=== PATIENT | female | born 1980 | race Caucasian/White ===

== ENCOUNTER → 2020-07-16 16:14 | Outpatient (CLI) | payer BC, SELFPAY ==
--- NOTE | ~2020-07-16 | MM_ITS ---
EXAMINATION: MM screening demi BI w mayco HISTORY: Screening mammogram TECHNIQUE: Craniocaudal and mediolateral oblique 3-D tomosynthesis images were obtained and synthetic 2-D images were generated. Bilateral rotated lateral cc views. CAD analysis was submitted and interp reted. COMPARISON: 10/21/2018 bilateral diagnostic digital mammogram and limited right breast ultrasound BREAST PARENCHYMAL COMPOSITION: The breasts are heterogeneously dense, which may obscure small masses . FINDINGS: There is a biopsy marker in the outer mid right breast posteriorly; history of prior benign stereotactic biopsy of right breast in 2018. Scattered benign calcifications primarily in the mid to upper outer right breast near region of prior stereotactic biopsy site. An approximately 1.6 cm partially circumscribed mass is suggested in the o uter mid right breast (MLO Tomosynthesis image 17/58). Diagnostic right mammogram and right breast ul trasound examination are recommended. Otherwise there is no evidence of suspicious mass, calcification, or architectural distortion to sugg est malignancy in either breast. There has been no other suspicious interval change. IMPRESSION: 1. Approximately 1.6 cm mass is suggested in the mid outer right breast 2. Diagnostic right mammogram and right breast ultrasound examination are recommended. BI-RADS Category 0: Incomplete: Needs additional imaging evaluation. Reviewed, dictated and finalized at location A. IMPRESSION: 1. Approximately 1.6 cm mass is suggested in the mid outer right breast 2. Diagnostic right mammogram and right breast ultrasound examination are recom mended. BI-RADS Category 0: Incomplete: Needs additional imaging evaluation.
== END ==
PROVIDERS: Visit Provider Obstetrics & Gynecology
DX: Z12.31 Encounter for screening mammogram for malignant neoplasm of breast (principal); R92.8 Other abnormal and inconclusive findings on diagnostic imaging of breast
CPT/HCPCS: 77063; 77067

== ENCOUNTER → 2020-08-13 09:01 | Outpatient (CLI) | payer BC, SELFPAY ==
--- NOTE | ~2020-08-13 | MMUS_ITS ---
EXAMINATION: MM diagnostic mammo unilat RT, US breast RT complete HISTORY: 1.6 cm partially circumscribed mass in outer mid right breast on 07/16/2020 screening mammogr am TECHNIQUE: Additional 3-D tomosynthesis images of the right breast were performed and synthetic 2-D i mages were generated. Magnification ML and cc views. CAD analysis was submitted and interpreted. High resolution complete right breast ultrasound was performed. COMPARISON: 07/12/2020 bilateral digital screening mammogram 10/21/2018 bilateral diagnostic digital mammogram and limited right breast ultrasound examination FINDINGS: MAMMOGRAPHIC FINDINGS: Numerous benign appearing microcalcifications are noted. There is a biopsy marker in the posterior mi d to lower outer right breast of prior benign stereotactic biopsy of right breast microcalcifications . No suspicious mass or architectural distortion is evident. However, the heterogeneous stroma may obsc ure masses. Complete right breast ultrasound examination was performed. ULTRASOUND: 4:00 3 cm from nipple: 2 x 10 x 8 mm simple cyst 8:00 5 cm from nipple: Septated 6 x 3.5 x 11 mm cyst 9:00 5 cm from nipple: 7 x 18 x 17 mm simple cyst 10:00 6 cm from nipple: There is an approximately 4 x 8 mm non-circumscribed area of hypoechogenicity without any internal vascularity on color flow imaging and without shadowing. 6 month targeted diagn ostic right mammogram and right breast ultrasound follow-up at 10:00 6 cm from nipple is recommended. IMPRESSION: 1. Probably benign findings 2. Six-month diagnostic right mammogram and targeted right breast ultrasound follow-up at 10:00 6 cm from the nipple is recommended BI-RADS category 3, probably benign findings. Reviewed, dictated and finalized at location A. IMPRESSION: 1. Probably benign findings 2. Six-month diagnostic right mammogram and targeted right breast ultrasound fo llow-up at 10:00 6 cm from the nipple is recommended BI-RADS category 3, probably benign findings.
== END ==
PROVIDERS: Visit Provider Obstetrics & Gynecology
DX: R92.8 Other abnormal and inconclusive findings on diagnostic imaging of breast (principal)
CPT/HCPCS: 76641; 77065

== ENCOUNTER → 2020-10-16 03:02 | Outpatient (CLI) | payer BC, SELFPAY ==
[2020-10-16 19:41] LABS: SARS-CoV-2 RNA PCR Negative
== END ==
PROVIDERS: PCP Family Medicine; Visit Provider Surgery
DX: Z01.812 Encounter for preprocedural laboratory examination (principal); Z20.822 Contact with and (suspected) exposure to COVID-19
CPT/HCPCS: C9803; U0003; U0005

== ENCOUNTER 2020-10-19 02:40 | Day surgery (SDC) | payer BC, SELFPAY ==
[2020-10-18 09:10] VITALS: BMI 25.8
--- NOTE | 2020-10-18 12:06 | P.PNAN_ITS ---
Anes - Initial Pre Proc Eval Procedure: Operation Date: 10/19/20 13:00 Proposed Procedures p Rectal Exam Under Anesthesia, Excision External Hemorrhoid - Steve Murray DO Date/Time: 10/18/20 12:06 Surgeon: Steve Murray DO Pre Op Diagnosis: external hemorrhoid Patient Data Age: 40 Gender: F Height: 1.57 m Weight: 64 kg Allergies Allergy/AdvReac Type Severity Reaction Status Date / Time No Known Allergies Allergy Verified 10/19/20 11:22 Home Medications Medication Instructions Recorded Confirmed Type multivitamin 1 tablet PO DAILY 09/12/20 10/19/20 History Patient hx anesthesia problems: none Family hx anesthesia problems: none [facility] Past Medical History Medical History Mitral valve prolapse Family History Family History Father Brain tumor Malignant neoplasm of prostate Mother Diabetes mellitus Sibling Diabetes mellitus Unknown Diabetes mellitus Cerebrovascular accident Social History Social History Smoking status: Never smoker Alcohol intake: current Drinks per week: 5 Substance use: never Living arrangements: with family Additional living arrangements comments: [facility] [employer] [facility] Spiritual care concerns: No Anes - Eval Final PreProcedure Day of Procedure 10/18/20 12:06 Patient weight: overweight Heart: regular rate and rhythm Lungs: clear to auscultation and normal air movement Airway: Mallampati scale class II Neurological: alert and oriented Last oral intake: >/= 8 hours ASA classification: II Emergent: no Anesthetic plan: proceed Anesthesia type and monitoring: general GIVS and standard monitoring Informed Consent: The patient's anesthetic plan and its attendant risks and benefits were discussed with the patient/family/POA. Questions were solicited and answers provided to the satisfaction of the patient/family/POA.
[2020-10-19 11:31] VITALS: BP 115/71; PULSE 72; RESP 16; TEMP 37.5; O2SAT 100
[2020-10-19] MEDS: LACTATED RINGERS 1,000 ML 30 ML IV CONT (11:35)
[2020-10-19] MEDS: ACETAMINOPHEN 500 MG TABLET 1000 MG PO (11:53)
[2020-10-19] MEDS: KETOROLAC 15 MG/ML VIAL (*BKC) IV PUSH (11:55)
--- NOTE | 2020-10-19 13:19 | WPDHPUPDATE1 ---
History and Physical Update Update Date/Time: 10/19/20 13:19 History and Physical has been reviewed, including an updated exam of the patient. There are NO changes in the patient's condition. Risks, benefits, and alternatives have been discussed and questions answered. Patient agrees to proceed with procedure.
--- NOTE | 2020-10-19 13:20 | PM.IMHP ---
H&P: HPI History of Present Illness Date/Time: 10/19/20 13:20 Chief Complaint: External hemorrhoid Narrative: This is a 40-year-old woman who presented with a previous thrombosed external hemorrhoid. The thrombosis has improved but she has a residual skin tag remaining the gets frequently irritated and is painful at times. She now presents for excision of the external hemorrhoid. Review of Systems Review of Systems: All systems reviewed & are unremarkable except as noted in HPI and below Constitutional: Constitutional: Denies chills, Denies fever(s), Denies headache(s) and Denies weight loss Eyes: Eyes: Denies change in vision ENT: Denies dizziness, Denies headache(s), Denies neck mass and Denies throat swelling Cardiovascular: Cardiovascular: Denies chest pain, Denies lightheadedness and Denies dyspnea Respiratory: Respiratory: Denies cough, Denies dyspnea and Denies wheezing Gastrointestinal: Gastrointestinal: Denies abdominal pain, Denies change in bowel habits, Denies nausea and Denies vomiting Genitourinary: Genitourinary: Denies hematuria and Denies dysuria Musculoskeletal: Musculoskeletal: Reports as per HPI Integumentary/Breasts: Skin/Breast: Reports as per HPI Neurologic: Denies dizziness and Denies headache(s) Allergic/Immunologic: Allergic/Immunologic: Denies throat swelling and Denies wheezing PMFSH Past Medical History Medical History Mitral valve prolapse Family History Family History Father Brain tumor Malignant neoplasm of prostate Mother Diabetes mellitus Sibling Diabetes mellitus Unknown Diabetes mellitus Cerebrovascular accident Social History Social History Smoking status: Never smoker Alcohol intake: current Drinks per week: 5 Substance use: never Living arrangements: with family Additional living arrangements comments: [facility] [employer] [facility] Spiritual care concerns: No Meds Home Medications and Allergies Home Medications Medication Instructions Recorded Confirmed Type multivitamin 1 tablet PO DAILY 09/12/20 10/19/20 History Allergies Allergy/AdvReac Type Severity Reaction Status Date / Time No Known Allergies Allergy Verified 10/19/20 11:22 Vital Signs Vital Signs - 24 hr 10/19/20 11:31 Temperature 37.5 C Pulse Rate 72 Respiratory Rate 16 Blood Pressure 115/71 Pulse Oximetry 100 Exam Const: General: no acute distress and alert Orientation/consciousness: patient oriented x3 HENMT: Head: normocephalic and atraumatic Ears: hearing grossly normal bilaterally General nose exam: Normal nares present Mouth: Yes Normal oral and palatal mucosa present Eyes: Periorbital: periorbital findings normal Sclera: sclerae normal EOM: EOMs intact bilaterally Neck: Neck: normal visual inspection, no lymphadenopathy and trachea midline Chest: Chest palpation & inspection: normal inspection of the chest Resp: Effort & Inspection: normal respiratory effort Auscultation: clear to auscultation bilaterally Cardio: Jugular venous distension: no JVD Rate: regular rate Rhythm: regular rhythm Heart sounds: S1 normal heart sound present and S2 normal heart sound present Peripheral pulses: Peripheral pulses 2+ throughout GI: Inspection: normal to inspection GI Palp: Yes Soft to palpation, No Tenderness to palpation present (GI), No Guarding due to palpation present (GI) and No Rebound tenderness present Percussion: Yes normal to percussion Auscultation: normal bowel sounds Rectal Exam: other (External residual hemorrhoid skin tag) : General: Yes no CVA tenderness Back/Spine/Pelvis: Back: no CVA tenderness Neuro: General: patient oriented x3, no focal motor deficits and CN's II-XI intact bilaterally Cognition (Neuro): normal cognition Speech: normal speech Motor exam
[2020-10-19] MEDS: ceFAZolin 2 GM/D5W 50 ML 2 GM/50 ML BAG IVPB (13:39)
[2020-10-19 14:15] VITALS: BP 113/74; PULSE 81; RESP 16; O2SAT 100
--- NOTE | 2020-10-19 14:15 | P.OP_ITS ---
Procedure Note - Detailed Date of Procedure 10/19/20 Pre-op Diagnosis external hemorrhoid Post-op Diagnosis same Procedure Performed 1. Rectal exam under anesthesia 2. Excision of external hemorrhoid x2 Surgeon Steve Murray, DO Anesthesia MAC and local (Exparel) Indications This is a 40-year-old woman who presented with a painful and irritated lump near her anus. This has been present for the past 2 months. She appeared to have evidence of a prior thrombosed external hemorrhoid and still had some swelling in the region and redundant skin tag. This was primarily located in the anterior midline region, but patient has also had some problems and other regions around the anus from prior pregnancies. Discussions were made with the patient about treatment options and decision was made to proceed with excision of the external hemorrhoid. Findings Rectal exam under anesthesia was performed. In the anterior midline there did appear to be evidence of a prior thrombosed external hemorrhoid. The external hemorrhoid was excised with an elliptical incision around the redundant perianal skin. The patient also had to areas of residual hemorrhoid skin tags in the posterior left and posterior right region was just off of midline. These were very skin tags measuring only about 2-3 mm. These 2 skin tags were also excised. The anoderm and anal mucosa in the anterior midline was reapproximated using 3-0 chromic simple interrupted sutures. The 2 small skin tags that were excised in the posterior region were left open. No other internal abnormalities were noted with careful inspection using a [place] anoscope. Description of Procedure Procedure as well as risks, benefits, and alternatives were discussed with the patient. Written consent was obtained and placed in chart prior to procedure. Patient was brought back to surgical suite. She was placed in prone yadira-knife position the operating table. Time-out was done to confirm patient and procedure. IV sedation was then administered by the anesthesia department. Her perirectal area was prepped and draped in sterile fashion using Betadine prep. Exparel was infiltrated locally around the anoderm. Digital rectal exam was in itially performed and then a [place] anoscope was inserted and the anal rectal canal was carefully inspected. The anterior midline hemorrhoid was excised using a 15 blade scalpel in an elliptical fashion. The hemorrhoid was completely excised and sent to the lab for pathology. Electrocautery was then used for hemostasis. The anal mucosa and anoderm was reapproximated using 3-0 chromic simple interrupted sutures. The area was irrigated with sterile saline. No abnormalities were noted in this location further. I then also inspected the posterior region and did find 2 small hemorrhoid residual skin tags these were both excised using curved Ramirez scissors. Electrocautery was used for hemostasis. These were both very small excisions and did not require reapproximation of the anal skin or mucosa. Hemostasis appeared adequate no other abnormalities were noted, the area was irrigated with sterile saline. One 5 inspection was made around the area, the anoscope was removed. Xeroform gauze was applied followed by fluff gauze, ABD pads, and mesh underwear. Estimated Blood Loss 10 Pathology yes (External hemorrhoid) Complications No immediate complications Condition stable Disposition same day
[2020-10-19 14:30] VITALS: BP 128/80; PULSE 71; RESP 16
[2020-10-19 14:45] VITALS: BP 123/69; PULSE 61; RESP 16
[2020-10-19 15:00] VITALS: BP 120/70; PULSE 60; RESP 16
== END 2020-10-19 15:06 | disposition home or self-care (01) ==
PROVIDERS: PCP Family Medicine; Visit Provider Surgery
PROC: (CPT 46320; principal; 2020-10-19 13:00)
DX: K64.5 Perianal venous thrombosis (principal); K64.4 Residual hemorrhoidal skin tags; I34.1 Nonrheumatic mitral (valve) prolapse
CPT/HCPCS: 46320; 46230; 88304; A9270; C9290; J0690; J1100; J1885; J2250; J2405; J2704; J3010; J7120

== ENCOUNTER → 2021-02-12 14:25 | Outpatient (CLI) | payer BC, SELFPAY ==
--- NOTE | ~2021-02-12 | MMUS_ITS ---
EXAMINATION: MM diagnostic demi RT w mayco, US breast RT limited HISTORY: Six-month follow-up for probably benign right breast masses TECHNIQUE: Craniocaudal, mediolateral, and mediolateral oblique 3-D tomosynthesis images of the right breast were performed and synthetic 2-D images were generated. CAD analysis was submitted and interp reted. High resolution limited right breast ultrasound was performed. COMPARISON: 08/13/2020, 07/16/2020, 10/21/2018 BREAST PARENCHYMAL COMPOSITION: The breasts are heterogeneously dense, which may obscure small masses . FINDINGS: MAMMOGRAPHIC FINDINGS: Scattered benign-appearing calcifications are present. No suspicious mass or architectural distortion are identified. A biopsy marker is noted in the posterior third of the upper outer quadrant of the b reast. ULTRASOUND: There is a stable 7 mm x 3 mm oval, circumscribed, parallel, hypoechoic mass with no posterior featur es or internal vascularity at the 10:00 location 6 cm from the nipple. A 1.6 cm cyst is seen at the 1 0:00 location 5 cm from the nipple. IMPRESSION: 1. Stable, probably benign right breast mass. 2. Recommend 6 month follow-up right diagnostic mammogram and ultrasound. BI-RADS category 3, probably benign findings. Reviewed, dictated and finalized at location A. MODEL IMPRESSION: 1. Stable, probably benign right breast mass. 2. Recommend 6 month follow-up right diagnostic mammogram and ultrasound. BI-RADS category 3, probably benign findings.
== END ==
PROVIDERS: Visit Provider Obstetrics & Gynecology
DX: R92.8 Other abnormal and inconclusive findings on diagnostic imaging of breast (principal)
CPT/HCPCS: 76642; 77061; 77065; G0279

== ENCOUNTER → 2021-09-03 09:41 | Outpatient (CLI) | payer BC, SELFPAY ==
--- NOTE | ~2021-09-03 | MMUS_ITS ---
EXAMINATION: MM diagnostic demi BI w mayco, US breast RT limited HISTORY: Six-month follow-up for probably benign right breast mass TECHNIQUE: Craniocaudal, mediolateral, and mediolateral oblique 3-D tomosynthesis images of the right breast were performed and synthetic 2-D images were generated. CAD analysis was submitted and interp reted. High resolution limited right breast ultrasound was performed. COMPARISON: 02/12/2021, 08/13/2020, 07/16/2020, 10/21/2018 BREAST PARENCHYMAL COMPOSITION: The breasts are heterogeneously dense, which may obscure small masses . FINDINGS: MAMMOGRAPHIC FINDINGS: There is no suspicious mass, calcification, or architectural distortion in either breast to suggest malignancy. There has been no suspicious interval change. There are stable benign-appearing breast ca lcifications. A biopsy marker is noted in the outer right breast. ULTRASOUND: There is a stable 7 mm x 3 mm oval, circumscribed, parallel, hypoechoic mass with no posterior featur es or internal vascularity at the 10:00 location 7 cm from the nipple. There is a 10 mm cyst at the 9 :00 location 7 cm from the nipple. IMPRESSION: 1. Stable, probably benign right breast mass. 2. Given one year of interval stability, recommend 12 month followup diagnostic mammogram and right b reast ultrasound. BI-RADS category 3, probably benign findings. Reviewed, dictated and finalized at location A. IMPRESSION: 1. Stable, probably benign right breast mass. 2. Given one year of interval stability, recommend 12 month followup diagnostic mammogram and right breast ultrasound. BI-RADS category 3, probably benign findings.
== END ==
PROVIDERS: PCP Family Medicine; Visit Provider Obstetrics & Gynecology
DX: R92.8 Other abnormal and inconclusive findings on diagnostic imaging of breast (principal)
CPT/HCPCS: 76642; 77062; 77066; G0279

== ENCOUNTER 2023-01-13 01:15 | Day surgery (SDC) | payer BC, SELFPAY ==
[2023-01-12 13:58] VITALS: BMI 28.5
--- NOTE | 2023-01-12 14:03 | PC.NURSE ---
Report to the Outpatient Waiting Room, entrance under the green pavilion located off [facility], at time 1200 on date 01/13/23. Planned Procedure Time: 1400. Time changes happen often and if your time is changed the preop area will call you the afternoon before. - You and your visitor will be asked to self-screen and do not enter if you have any COVID symptoms. - A mask is optional within the hospital at this time. Patients may have clear liquids (water, carbonated beverages, clear teas, apple juice) until 3 hours prior to surgery with a maximum of 20 ounces. - No food from midnight until time of surgery Take the following medications with a SIP of water the morning of surgery: TYLENOL IF NEEDED DO NOT STOP ANY OF YOUR OTHER PRESCRIPTION MEDICATIONS PRIOR TO SURGERY ?EXCEPT THE FOLLOWING Medications to discontinue per physician: VITAMINS Date to take last dose: NO MORE UNTIL AFTER SURGERY Please no make-up, nail tajik, hairspray, perfume, deodorant, or body powder the day of surgery. No jewelry (including any body piercings) or valuables the day of surgery, leave them at home. Please take a shower or bath the night before, or the morning of, surgery with an antibacterial soap. Wear comfortable, loose fitting clothing. - Jewelry must be removed prior to entering the operating room. Rings and piercings that are not removed may be cut off. - The hospital will not accept responsibility for valuables. - Please leave all valuables, including medications, at home the day of surgery. If you are going home after surgery, a licensed corrugated fastener driver must drive you home. - NO public transportation without another adult if you receive anesthesia. - We recommend that an adult stay with you for 24 hours following discharge. - We also recommend that you do not drive, make important decision, drink alcoholic beverages, or take any drugs that were not prescribed by your health care provider for at least 24 hours after your discharge time. Follow any additional instructions given to you from your surgeon. If you or anyone in your household have experienced Covid symptoms in the past week, please notify your surgeon or the nurse liaison at the phone number below for possible testing. Telephone instructions given to PT - PAOLA DELGADO and asked if any additional questions and then verbalized understanding. Patient advised to call surgeon office or pre surgery nurse liaison [phone] if any additional questions.
--- NOTE | 2023-01-12 18:00 | PM.IMHP ---
H&P: HPI History of Present Illness Date/Time: 01/12/23 18:00 Chief Complaint: Vaginal bleeding/anemia Narrative: The 42-year-old female who is admitted for hysteroscopy dilatation curettage secondary to thickened endometrium and hemoglobin 7.4. She was placed on Prometrium and continued to have bleeding. She is presently on. Risks and benefits reviewed this hysteroscopy and D&C as well as an ablation. She understands it is not a form of control but her has had a vasectomy [facility] Past Medical History Medical History Mitral valve prolapse Surgical History Surgical History H/O hemorrhoidectomy 10/19/20 Rectal exam under anesthesia, Excision of external hemorrhoid x2 Family History Family History Father Brain tumor Malignant neoplasm of prostate Mother Diabetes mellitus Sibling Diabetes mellitus Unknown Diabetes mellitus Cerebrovascular accident Social History Social History Smoking status: Never smoker Alcohol intake: current Drinks per week: 4 Substance use: never Substance use type: does not use Living arrangements: with family Additional living arrangements comments: [facility] [employer] [facility] Spiritual care concerns: No Meds Home Medications and Allergies Home Medications Medication Instructions Recorded Confirmed Type multivitamin 1 tablet PO DAILY 09/12/20 01/12/23 History acetaminophen 325 mg capsule 325 mg PO Q6H PRN Pain 11/30/20 01/12/23 History ferrous sulfate 325 mg (65 mg 65 mg PO DAILY 01/12/23 01/12/23 History iron) tablet (Iron (ferrous sulfate)) Allergies Allergy/AdvReac Type Severity Reaction Status Date / Time No Known Allergies Allergy Verified 01/12/23 13:57 Exam Const: General: cooperative, healthy appearing, comfortable and average body habitus Orientation/consciousness: oriented to person, oriented to place and oriented to time Resp: Effort & Inspection: normal respiratory effort Cardio: Rate: regular rate Rhythm: regular rhythm Heart sounds: S1 normal heart sound present and S2 normal heart sound present GI: Inspection: normal to inspection : External Female Exam: normal external appearance Speculum Exam - Vagina: normal appearance of the vagina and vaginal bleeding Speculum Exam - Cervix: normal appearance of the cervix Bimanual exam- vagina & uterus: enlarged Bimanual Exam- Adnexa, other: normal adnexae Assessment and Plan Assessment and plan (1) Excessive bleeding: Code(s): R58 - Hemorrhage, not elsewhere classified Status: Acute (2) Anemia: Code(s): D64.9 - Anemia, unspecified Status: Acute Plan Will proceed with hysteroscopy/dilatation and curettage/Violeta ablation
[2023-01-13] VITALS (7 sets, daily range): BP systolic 106–123; BP diastolic 63–78; PULSE 71–92; RESP 12–16; TEMP 36.4–36.7; O2SAT 98–100
--- NOTE | 2023-01-13 06:43 | WPDHPUPDATE1 ---
History and Physical Update Update Date/Time: 01/13/23 06:43 History and Physical has been reviewed, including an updated exam of the patient. There are NO changes in the patient's condition. Risks, benefits, and alternatives have been discussed and questions answered. Patient agrees to proceed with procedure.
[2023-01-13] MEDS: ACETAMINOPHEN 500 MG TABLET 1000 MG PO (12:30)
--- NOTE | 2023-01-13 12:54 | WPDANESEPPF ---
Anes - Initial Pre Proc Eval Procedure: Operation Date: 01/13/23 14:00 Proposed Procedures p Hysteroscopy, Dilation and Curettage, Violeta Endometrial Ablation - Laureano New MD Date/Time: 01/13/23 12:54 Surgeon: Laureano New MD Pre Op Diagnosis: excessive bleeding, anemia Patient Data Age: 42 Gender: F Height: 1.57 m Weight: 70.76 kg Allergies Allergy/AdvReac Type Severity Reaction Status Date / Time No Known Allergies Allergy Verified 01/13/23 12:28 Home Medications Medication Instructions Recorded Confirmed Type multivitamin 1 tablet PO DAILY 09/12/20 01/13/23 History acetaminophen 325 mg capsule 325 mg PO Q6H PRN Pain 11/30/20 01/13/23 History ferrous sulfate 325 mg (65 mg 65 mg PO DAILY 01/12/23 01/12/23 History iron) tablet (Iron (ferrous sulfate)) hydrocodone 5 mg-acetaminophen 325 1 tablet PO Q4H PRN pain #14 tabs 01/13/23 Rx mg tablet Patient hx anesthesia problems: none Family hx anesthesia problems: none Results Review: All pre-operative results and documents have been reviewed as part of the pre-operative evaluation. [facility] Past Medical History Medical History Mitral valve prolapse Surgical History Surgical History H/O hemorrhoidectomy 10/19/20 Rectal exam under anesthesia, Excision of external hemorrhoid x2 Family History Family History Father Brain tumor Malignant neoplasm of prostate Mother Diabetes mellitus Sibling Diabetes mellitus Unknown Diabetes mellitus Cerebrovascular accident Social History Social History Smoking status: Never smoker Alcohol intake: current Drinks per week: 4 Substance use: never Substance use type: does not use Living arrangements: with family Additional living arrangements comments: [facility] Spiritual care concerns: No Anes - Eval Final PreProcedure Day of Procedure 01/13/23 12:54 Patient weight: overweight Heart: regular rate and rhythm Lungs: clear to auscultation Airway: Mallampati scale class II Neurological: alert and oriented Last oral intake: >/= 8 hours ASA classification: II Emergent: no Anesthetic plan: proceed Anesthesia type and monitoring: general GIVS and standard monitoring Results Review: All pre-operative results and documents have been reviewed as part of the pre-operative evaluation. Informed Consent: The patient's anesthetic plan and its attendant risks and benefits were discussed with the patient/family/POA. Questions were solicited and answers provided to the satisfaction of the patient/family/POA.
[2023-01-13] MEDS: LACTATED RINGERS 1,000 ML 30 ML IV CONT (12:56)
[2023-01-13] MEDS: LIDOCAINE HCL 1% LOCAL INJ 20 ML VIAL 10 ML INFILTRATE (13:43)
--- NOTE | 2023-01-13 13:56 | W.PM.PROC2 ---
Procedure Note - Detailed Date of Procedure 01/13/23 Pre-op Diagnosis excessive bleeding, anemia Post-op Diagnosis Same Procedure Performed Hysteroscopy / dilatation curettage/Min nerve ablation Surgeon Laureano New MD Anesthesia General and Local Indications sh 42-year-old female with heavy bleeding and anemia Findings uterus sounded to 9cm. Thick irregular endometrial tissue was seen Description of Procedure patient was prepped draped in the normal sterile fashion placed in the dorsal lithotomy position. Under excellent IV sedation weighted speculum placed in the posterior fornix vagina. Anterior lip of cervix grasped with a single-tooth tenaculum. 2.5cc 1% xylocaine anesthesia placed at 2, 4, 8, 10:00 a.m. of the cervix. Uterus sounded to 9cm. Serial dilatation with fragmented dilators performed followed by passage of the 5mm at the Kayla visualizing hysteroscope using normal saline. Thick irregular endometrium was seen but no evidence of polyp or other abnormalities. Uterus was scraped over the entire 360?. The nerve instrument was then placed in the endometrial canal placed at the appropriate settings and burned for 120seconds. The hysteroscope was reinserted and a good burn was noted photo documentation undertaken. The instruments removed and blood loss was estimated at5cc. All sponge, needle, instrument counts were correct. There were no immediate complications Estimated Blood Loss 5 Drains No Packing No Pathology Yes Complications No immediate complications Condition Stable Disposition PACU
[2023-01-13] MEDS: oxyCODONE HCL (*CRX) 5 MG TAB IR PO (14:56)
[2023-01-13] MEDS: ONDANSETRON HCL ODT 4 MG TABLET PO (15:45)
== END 2023-01-13 15:53 | disposition home or self-care (01) ==
PROVIDERS: PCP Physician Assistant; Visit Provider Obstetrics & Gynecology
PROC: 0U5B8ZZ Destruction of Endometrium, Via Natural or Artificial Opening Endoscopic (ICD-10-PCS; CPT 58563; principal; 2023-01-13 14:00)
DX: N93.9 Abnormal uterine and vaginal bleeding, unspecified (principal); N84.0 Polyp of corpus uteri; D64.9 Anemia, unspecified; I34.1 Nonrheumatic mitral (valve) prolapse; Z82.49 Family history of ischemic heart disease and other diseases of the circulatory system; Z80.42 Family history of malignant neoplasm of prostate; Z80.8 Family history of malignant neoplasm of other organs or systems; Z79.891 Long term (current) use of opiate analgesic
CPT/HCPCS: 58563; 88305; A9270; J1100; J2250; J2405; J2704; J3010; J7120

== ENCOUNTER 2023-01-27 07:30 | Outpatient (RCR) | payer BC, SELFPAY ==
[2023-01-26 15:10] LABS: Hemoglobin 7.7 g/dL (12.0-15.0)
== END 2023-04-26 23:59 | disposition home or self-care (01) ==
LOC: ANHCPCTRAN 07:30
PROVIDERS: Visit Provider Obstetrics & Gynecology
DX: D64.9 Anemia, unspecified (principal)
CPT/HCPCS: 36415; 85014; 85018; 86850; 86900; 86901; 86920

== ENCOUNTER → 2023-02-06 15:24 | Outpatient (CLI) | payer BC, SELFPAY ==
--- NOTE | ~2023-02-06 | MM_ITS ---
EXAMINATION: MM screening [facility] BI w [facility] HISTORY: Screening TECHNIQUE: Craniocaudal and mediolateral oblique 3-D tomosynthesis images were obtained and synthetic 2-D images were generated. CAD analysis was submitted and interpreted. COMPARISON: Comparison to multiple prior studies sequentially, with oldest reviewed study dated 10/21. BREAST PARENCHYMAL COMPOSITION: The breasts are heterogeneously dense, which may obscure small masses . FINDINGS: There is no evidence of suspicious mass, calcification, or architectural distortion to sugg est malignancy in either breast. There has been no suspicious interval change. IMPRESSION: 1. No mammographic evidence of malignancy. 2. Recommend routine screening mammography in one year. BI-RADS Category 1: Negative Reviewed, dictated and finalized at location A. ING HELPER
== END ==
PROVIDERS: PCP Obstetrics & Gynecology; Visit Provider Obstetrics & Gynecology
DX: Z12.31 Encounter for screening mammogram for malignant neoplasm of breast (principal)
CPT/HCPCS: 77063; 77067

== ENCOUNTER → 2023-02-06 15:28 | Outpatient (CLI) | payer BC, SELFPAY ==
--- NOTE | ~2023-02-06 | US_ITS ---
EXAMINATION: US thyroid DATE: 02/06/2023 15:54 INDICATION: Other specified symptoms and signs involving the thyroid. Throat fullness. TECHNIQUE: Multiple ultrasound images of the thyroid were obtained. COMPARISON: None. FINDINGS: The right thyroid lobe measures 4.7 x 1.5 x 1.3 cm. The left thyroid lobe measures 3.7 x 0.9 x 1.3 c m. No discrete nodules identified. There is normal echotexture, echogenicity and vascular flow throu ghout the thyroid gland. There is a 9 x 6 x 4 mm very hypoechoic lesion in the submandibular left upp er neck without evident internal vascular flow on color Doppler. IMPRESSION: 1. Normal thyroid. 2. Palpable abnormality along the submandibular left upper neck corresponds to a 9 x 6 x 4 mm very hy poechoic lesion most likely representing a normal sized lymph node although could not exclude a small simple appearing cystic lesion. Depending on level of clinical concern. Consider either further eval uation with contrast-enhanced CT or clinical follow-up with repeat imaging if there are changes on ph ysical exam. Reviewed, dictated and finalized at location A. [employer] IMPRESSION: 1. Normal thyroid. 2. Palpable abnormality along the submandibular left upper neck corresponds to a 9 x 6 x 4 mm very hypoechoic lesion most likely representing a normal sized l ymph node although could not exclude a small simple appearing cystic lesion. De pending on level of clinical concern. Consider either further evaluation with c ontrast-enhanced CT or clinical follow-up with repeat imaging if there are machuca ges on physical exam.
== END ==
PROVIDERS: PCP Physician Assistant; Visit Provider Physician Assistant
DX: R09.89 Other specified symptoms and signs involving the circulatory and respiratory systems (principal)
CPT/HCPCS: 76536

== ENCOUNTER → 2023-02-27 13:57 | Outpatient (CLI) | payer BC, SELFPAY ==
--- NOTE | ~2023-02-27 | CT_ITS ---
EXAMINATION: CT soft tissue neck w con DATE: 02/27/2023 14:23 INDICATION: Localized swelling, mass and lump, neck. TECHNIQUE: Computed tomography (CT) of the neck was performed with 75 mL Omnipaque-350 intravenous co ntrast. Automated exposure control and iterative reconstruction technique were employed. The dose-adrianne gth product was 409.80 mGy-cm. COMPARISON: Ultrasound 02/06/2023 FINDINGS: There are no pathologically enlarged lymph nodes. The cervical carotid arteries are normal. There is minimal mucosal thickening in left maxillary sinus. The mastoid air cells are normal. There is mild cervical spondylosis. IMPRESSION: 1. No abnormal neck mass or lymphadenopathy. Reviewed, dictated and finalized at location E. RAM EVALUATOR
== END ==
PROVIDERS: PCP Physician Assistant; Visit Provider Physician Assistant
DX: R22.1 Localized swelling, mass and lump, neck (principal)
CPT/HCPCS: 70491; Q9967

== ENCOUNTER 2024-04-26 15:15 | Outpatient (CLI) | payer BC, SELFPAY | END 2024-04-26 15:16 | disposition home or self-care (01) | LOC: MICIMG 15:18 | PROVIDERS: PCP Obstetrics & Gynecology; Visit Provider Obstetrics & Gynecology | DX: Z12.31 Encounter for screening mammogram for malignant neoplasm of breast (principal) | CPT/HCPCS: 77063; 77067 ==

== ENCOUNTER 2024-11-29 15:24 | Outpatient (CLI) | payer BC, SELFPAY ==
[2024-11-29 15:44] LABS: Hematocrit 33.7 % (37.0-47.0); Hemoglobin 11.2 g/dL (12.0-15.0); Immature Granulocyte Percent A 0.1 % (0-0.5); Lymphocytes Absolute Auto 1.46 K/mm3 (0.9-3.2); Mean Corpuscular HGB Conc 33.2 g/dl (32-36); Mean Corpuscular Hemoglobin 30.4 pg (26-34); Mean Corpuscular Volume 91.6 fl (80-100); Nucleated Red Blood Cells Absolute Auto 0.000 K/mm3 (0.0-0.012); Nucleated Red Blood Cells Perc 0.0 % (0.0-0.2); Platelet Count Result 243 k/mm3 (150-375); Red Blood Count 3.68 M/mm3 (4.2-5.4); White Blood Count 6.9 K/mm3 (4.5-10.0)
--- OUTSIDE RECORDS SUMMARY | 2024-11-29 16:12 | XMS_ITS | Clinical Summary ---
Author Organization [facility] Address [address] [place] [address] Care Team Providers Care Chainstitch Tunnel Elastic Operator Name Role Phone Rob Harrington MD Primary Care Provid er Allergies No known active allergies Medications multivitamin tabletIndication s:Vitamin Deficiency Prevention Take 1 tablet by mouth Active VITAMIN B COMPLEX ORAL Take 1 tablet by mouth daily 7 Active omega-3 fatty acids (LOVAZA) 1 gram capsule Take 1,000 mg by mouth daily 7 Active celecoxib (CeleBREX) 200 mg capsule 200 mg daily 6 Active omeprazole (PriLOSEC) 40 mg capsuleIndicatio ns:Gastroesophag eal reflux disease without esophagitis Take 1 capsule (40 mg total) by mouth daily for 30 days, THEN 1 capsule (40 mg total) every other day for 14 days. 37 capsule 2 Active metoclopramide (REGLAN) 10 mg tablet 1 tab daily with meals and at bed time PRN abdominal pain 40 tablet 2 2 Active Active Problems Problem Noted Date Diagnosed Date Dyslipidemia 03/02/2019 Essential hypertension 03/02/2019 Mitral valve prolapse 03/02/2019 Stroke 03/02/2019 Precordial pain 10/06/2016 Immunizations Immunization Administration Dates Next Due Influenza, Unspecified 11/23/2020(Deferr ed: Patient Refused),11/24/2019(Deferred: Patient Refused) Tdap 08/02/2013 Surgical History Surgery Date Site/Laterality Comments BREAST BIOPSY 11/16/2018 Right Family History Medical History Relation Name Comments Prostate cancer Father Breast cancer Maternal Grandmother Relation Name Status Comments Father Maternal Grandmother Social History Tobacco Use Types Packs/Day Years Used Date Smoking Tobacco: Never Smokeless Tobacco: Never Alcohol Use Standard Drinks/Week Comments Yes 0 (1 standard drink = 0.6 oz pur e alcohol) socially AUDIT-C Answer Date Recorded Q1: How often do you have a drink containing alc ohol? Monthly or less 10/18/2021 Q2: How many drinks containi ng alcohol do you have on a typical day when you are drinking? 1 or 2 10/18/2021 Q3: How often do you have si x or more drinks on one occasion? Never 10/18/2021 PHQ-2 Answer Date Recorded PHQ-2 Total Score (If total score is 3 or more points, staff should administer the PHQ-9) 0 10/18/2021 Personal Safety Answer Date Recorded Getting School Help Needed Not on file 04/18 Comments No Sex and Gender Information Value Date Recorded Sex Assigned at Not on file Legal Sex Female 6:38 AM CLINICAL LABORATORY TECHNICIAN Gender Identity Female 10/28/2018 10:27 AM CDT Sexual Orientation Not on file Obstetrics History Last Filed Vital Signs Vital Sign Reading Time Taken Comments Blood Pressure 110/62 10/18/2021 12:47 PM CDT Pulse 78 10/18/2021 12:47 PM CDT Temperature 36.4 C (97.6 F) 10/18/2021 12:47 PM CDT Respiratory Rate 16 10/18/2021 12:47 PM CDT Oxygen Saturation 98% 10/18/2021 12:47 PM CDT Inhaled Oxygen Concentration - - Weight 71.8 kg (158 lb 6.4 oz) 10/18/2021 12:47 PM CDT Height 157.5 cm (5' 2) 10/18/2021 12:47 PM CDT Body Mass Index 28.97 10/18/2021 12:47 PM CDT Plan of Treatment Not on file [place] [address] [place] [address] ACCESS Care Teams Chainstitch Tunnel Elastic Operator Relationship Specialty Start Date End Date Rob Harrington MD [address] [place] [address] PCP - General Family Medicine 10/26/18
--- OUTSIDE RECORDS SUMMARY | 2024-11-29 16:12 | XMS_ITS | Encounter Summary ---
Author Organization [facility] Facility Care Team Providers Care Document Scanner Name Role Phone Rob Harrington MD Primary Care Provid er Encounter Details Date Type Department Care Team (Latest Contact Info) Description 10/28/2016 Orders Only [facility] CLINCONV ProviderChacorta MD [address] [place] [id number] Social History Tobacco Use Types Packs/Day Years Used Date Smoking Tobacco: Never Assessed Comments Unknown Sex and Gender Information Value Date Recorded Sex Assigned at Not on file Legal Sex Female 6:38 AM RELOCATION SERVICES SPECIALIST Gender Identity Female 10/28/2018 10:27 AM CDT Sexual Orientation Not on file documented as of this encounter Plan of Treatment Not on file documented as of this encounter Procedures Procedure Name Priority Date/Time Associated Diagnosis Comments CARDIOLOGY REPORT 10/28/2016 12: 00 AM CDT CARDIOLOGY REPORT 10/28/2016 12: 00 AM CDT documented in this encounter Results * CARDIOLOGY REPORT (10/28/2016 12:00 AM CDT) Anatomical Region Laterality Modality Other Narrative 10/28/2016 12:00 AM CDT Ordered by an unspecified provider. Historical Provider [facility] KENDRA BELL Final Result * CARDIOLOGY REPORT (10/28/2016 12:00 AM CDT) Anatomical Region Laterality Modality Other Narrative 10/28/2016 12:00 AM CDT Ordered by an unspecified provider. us Historical Provider [facility] KENDRA BELL Final Result documented in this encounter Visit Diagnoses Not on filedocumented in this encounter Care Teams Document Scanner Relationship Specialty Start Date End Date Rob Harrington MD [address] [place] [address] PCP - General Family Medicine 10/26/18 documented as of this encounter
== END 2024-11-29 15:25 | disposition home or self-care (01) ==
LOC: ANHSURGERY 15:27
PROVIDERS: PCP Family Medicine; Visit Provider Obstetrics & Gynecology
DX: R58 Hemorrhage, not elsewhere classified (principal)
CPT/HCPCS: 36415; 85025; 86850; 86900; 86901

== ENCOUNTER 2024-12-02 00:26 | Day surgery (SDC) | payer BC, SELFPAY ==
[2024-11-28 13:50] VITALS: BMI 30.2
--- NOTE | 2024-11-28 13:57 | PC.NURSE ---
[facility] has started construction of its new state of the art ER which will open Spring 2026. With this, we anticipate parking may be a challenge for some our surgical patients and families. Parking spaces are limited but are available for all Surgical, obstetrics, and ER patients sharing this lot. If you arrive and find you are having a hard time finding a parking space, please note that we understand the challenges, please drive around the hospital and park near Hospital Entrance 1. When you enter this entrance, you can ask a volunteer to direct or take you back to the surgical waiting area to check in. We appreciate everyone?s understanding of these expected challenges while we build for your future. Report to the Outpatient Waiting Room, entrance under the green pavilion located off [address], at time _0730_ on date _[id number]_. Planned Procedure Time: _0930_.? Time changes happen often and if your time is changed the preop area will call you the afternoon before. - You and your visitor will be asked to self-screen and do not enter if you have any COVID symptoms. Please call surgeon if you need to reschedule. - A mask is optional within the hospital at this time. Patients may have clear liquids (water, carbonated beverages, clear teas, apple juice) until 3 hours prior to surgery with a maximum of 20 ounces. - No food from midnight until time of surgery and no smoking, or chewing tobacco (or any form of nicotine). No chewing gum, candy or mints. Take only the following medications with a SIP of water on the morning of surgery: __None___ DO NOT STOP ANY OF YOUR OTHER PRESCRIPTION MEDICATIONS PRIOR TO SURGERY EXCEPT THE FOLLOWING Hold all vitamins and supplements for 3 days per anesthesiologist. Medications to discontinue per physician Date to take last [id number]____ Please no make-up, nail slovenian, hairspray, perfume, deodorant, or body powder the day of surgery.? No jewelry (including any body piercings) or valuables the day of surgery, leave them at home.? Please take a shower or bath the night before, or the morning of, surgery with an antibacterial soap.? Wear comfortable, loose fitting clothing.? - Jewelry must be removed prior to entering the operating room.? Rings and piercings that are not removed may be cut off. - The hospital will not accept responsibility for valuables.? - Please leave all valuables, including medications, at home the day of surgery. If you are going home after surgery, a licensed utility worker driver must drive you home.? - NO public transportation without another adult if you receive anesthesia. - We recommend that an adult stay with you for 24 hours following discharge. - We also recommend that you do not drive, make important decision, drink alcoholic beverages, or take any drugs that were not prescribed by your health care provider for at least 24 hours after your discharge time. Follow any additional instructions given to you from your surgeon. Telephone instructions given to __Aysha___and asked if any additional questions and then verbalized understanding. Patient advised to call surgeon office or pre surgery nurse liaison [phone] if any additional questions.
--- NOTE | 2024-11-29 07:11 | PM.IMHP ---
H&P: HPI History of Present Illness Date/Time: 11/29/24 07:11 Chief Complaint: Excessive heavy bleeding/anemia e Narrative: 44-year-old patient admitted for robotic total vaginal hysterectomy and bilateral salpingectomy secondary to excessive heavy bleeding and anemia. She failed an ablation. She continues to have excessive bleeding. Risks and benefits reviewed including but not exclusive of , aspiration pneumonia, bleeding, transfusion, perforation injury to bowel, bladder, ureters, or other internal organs with need for open laparotomy. She received the ACOG handout entitled hysterectomy as well as the Coretta handout. She had all questions answered. She asked to proceed. Review of Systems Review of Systems: All systems reviewed & are unremarkable except as noted in HPI and below Constitutional: Constitutional: Denies chills, Denies fever(s), Denies headache(s) and Denies weight loss Eyes: Eyes: Denies change in vision ENT: Denies dizziness, Denies headache(s), Denies neck mass and Denies throat swelling Cardiovascular: Cardiovascular: Denies chest pain, Denies lightheadedness and Denies dyspnea Respiratory: Respiratory: Denies cough, Denies dyspnea and Denies wheezing Gastrointestinal: Gastrointestinal: Denies abdominal pain, Denies change in bowel habits, Denies nausea and Denies vomiting Genitourinary: Genitourinary: Denies hematuria and Denies dysuria Musculoskeletal: Musculoskeletal: Reports as per HPI Integumentary/Breasts: Skin/Breast: Reports as per HPI Neurologic: Denies dizziness and Denies headache(s) Allergic/Immunologic: Allergic/Immunologic: Denies throat swelling and Denies wheezing [facility] Past Medical History Medical History Mitral valve prolapse Surgical History Surgical History H/O hemorrhoidectomy 10/19/20 Rectal exam under anesthesia, Excision of external hemorrhoid x2 Family History Family History Father Brain tumor Malignant neoplasm of prostate Mother Diabetes mellitus Sibling Diabetes mellitus Unknown Diabetes mellitus Cerebrovascular accident Social History Social History Smoking status: Never smoker Alcohol intake: current Drinks per week: 4 Substance use: never Substance use type: does not use Living arrangements: with family Additional living arrangements comments: [facility] Spiritual care concerns: No Meds Home Medications and Allergies Home Medications ?Medication ?Instructions ?Recorded ?Confirmed ?Type multivitamin 1 tablet PO DAILY 09/12/20 11/28/24 History Allergies Allergy/AdvReac Type Severity Reaction Status Date / Time No Known Allergies Allergy Verified 11/28/24 13:50 Exam Const: General: cooperative, healthy appearing, comfortable and overweight Orientation/consciousness: oriented to person, oriented to place and oriented to time HENMT: Head: normal to inspection Resp: Effort & Inspection: normal respiratory effort Cardio: Rate: regular rate Rhythm: regular rhythm Heart sounds: S1 normal heart sound present and S2 normal heart sound present GI: Inspection: normal to inspection : External Female Exam: normal external appearance Speculum Exam - Vagina: normal appearance of the vagina Speculum Exam - Cervix: normal appearance of the cervix Bimanual exam- vagina & uterus: enlarged Bimanual Exam- Adnexa, other: normal adnexae Assessment and Plan Assessment and plan (1) Excessive bleeding: Code(s): R58 - Hemorrhage, not elsewhere classified Status: Acute (2) Anemia: Code(s): D64.9 - Anemia, unspecified Status: Acute Plan Will proceed with robotic total vaginal hysterectomy and bilateral salpingectomy
[2024-12-02] VITALS (10 sets, daily range): BP systolic 97–133; BP diastolic 56–81; PULSE 61–83; RESP 10–18; TEMP 36.4–37.4; O2SAT 96–100; BMI 30.2
--- OUTSIDE RECORDS SUMMARY | 2024-12-02 00:29 | XMS_ITS | Encounter Summary ---
Author Organization [facility] Facility Care Team Providers Care Office Administration Name Role Phone Rob Harrington MD Primary Care Provid er Encounter Details Date Type Department Care Team (Latest Contact Info) Description 10/28/2016 Orders Only [facility] CLINCONV ProviderChacorta MD [address] [place] [id number] Social History Tobacco Use Types Packs/Day Years Used Date Smoking Tobacco: Never Assessed Comments Unknown Sex and Gender Information Value Date Recorded Sex Assigned at Not on file Legal Sex Female 6:38 AM PROTOTYPE CARPENTER Gender Identity Female 10/28/2018 10:27 AM CDT [...] on filedocumented in this encounter Care Teams Office Administration Relationship Specialty Start Date End Date Rob Harrington MD [address] [place] [address] PCP - General Family Medicine 10/26/18 documented as of this encounter
--- OUTSIDE RECORDS SUMMARY | 2024-12-02 00:29 | XMS_ITS | Clinical Summary ---
Author Organization [facility] Address [facility] [place] [address] Care Team Providers Care Field Services Manager Name Role Phone Daniel Harper MD Unavailable [phone] Mirella Yeh Primary Care Provider [phone] Allergies No known active allergies Medications DAILY MULTIPLE VITAMINS Tab Take 1 tablet by mouth daily. 10/06/2016 Active B Complex Vitamins (VITAMIN B COMPLEX) Tab Take 1 tablet by mouth daily. 10/06/2016 Active famotidine (PEPCID) 20 MG tabletIndication s:Heartburn Take 1 tablet (20 mg total) by mouth 2 (two) times daily. 60 tablet 1 12/19/2021 Active Active Problems Problem Noted Date Diagnosed Date Mitral valve prolapse 03/02/2019 Resolved Problems Problem Noted Date Diagnosed Date Resolved Date Precordial pain 10/06/2016 12/19/2021 Stroke ([facility]) Mitral valve prolapse 2021 Essential hypertension 12/19 Dyslipidemia 12/19/2021 Immunizations Immunization Administration Dates Next Due Tdap (Generic) 08/02/2013 Family History Medical History Relation Comments Cancer Father menginoma Father Stroke Maternal Grandfather Diabetes Mother Diabetes Sister Other Sister Relation Status Comments Father Maternal Grandfather Mother Sister Alive Social History Tobacco Use Types Packs/Day Years Used Date Smoking Tobacco: Never Smokeless Tobacco: Never Tobacco Cessation:Counseling Given: No Alcohol Use Standard Drinks/Week Comments Yes 0 (1 standard drink = 0.6 oz pur e alcohol) Occasionally PHQ-2 Answer Date Recorded PHQ-2 Score - If the patient scores above 3, please move on to questions 3-9 0 12/19/2021 Comments No Sex and Gender Information Value Date Recorded Sex Assigned at Not on file Legal Sex Female 10:44 PM CDT Gender Identity Not on file Sexual Orientation Not on file 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 Not on file Not on file Not on f ile Last Filed Vital Signs Vital Sign Reading Time Taken Comments Blood Pressure 112/74 12/19/2021 10:41 AM CDT Pulse 75 12/19/2021 10:41 AM CDT Temperature 37.5 C (99.5 F) 12/19/2021 10:41 AM CDT Respiratory Rate 20 12/19/2021 10:41 AM CDT Oxygen Saturation 100% 12/19/2021 10:41 AM CDT Inhaled Oxygen Concentration - - Weight 71.2 kg (157 lb) 12/19/2021 10:41 AM CDT Height 157.5 cm (5' 2) 12/19/2021 10:41 AM CDT Body Mass Index 28.72 12/19/2021 10:41 AM CDT Plan of Treatment Health Maintenance Due Date Last Done Comments Cervical Cancer Screening Pa p Smear (Age 30 to 64) Every 3 Years 1980 Annual Physical 08/07/1983 Hepatitis C 1998 Hepatitis B Vaccines (1 of 3 - 19+ 3-dose series) 08/07/1999 HPV Vaccines (1 - 3-dose SCD M series) 08/07/2007 Cervical Cancer Screening Pa p with HPV Testing (Age 30 to 64) Every 5 Years 2010 Cervical Cancer Screening with HPV 2010 Mammogram Screening 2020 DTaP, Tdap and Td Vaccines ( 2 - Td or Tdap) 08/03/2023 08/02/2013 COVID-19 Vaccine (2023-2 5 season) 2024 Influenza Adult (#1) 2024 Pneumococcal Vaccine: Pediat rics (0 to 5 Years) and At-Risk Patients (6 to 49 Years) (1 of 2 - PCV) 12/19/2041 Postponed from 08/06 (Future Appointment) Meningococcal B Vaccine Aged Out No l onger eligible based on patient's age to complete this topic Meningococcal Vaccine Aged Out No marzena dionte eligible based on patient's age to complete this topic RSV Immunizations Under 20 Months Aged Out No longer eligible based on patient's age to complete this topic [place] [address] [address] [place] [address] Care Teams Field Services Manager Relationship Specialty Start [place] [address] [place] [address] PCP - General PHYSICIAN AUDIT PRACTICE INTERN 12/11/21 Daniel Harper MD [place] [employer] Operator CARDIOVASCULAR DISEASE 09/29/16
--- OUTSIDE RECORDS SUMMARY | 2024-12-02 00:29 | XMS_ITS | Clinical Summary ---
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
--- NOTE | 2024-12-02 06:31 | WPDHPUPDATE1 ---
History and Physical Update Update Date/Time: 12/02/24 06:31 History and Physical has been reviewed, including an updated exam of the patient. There are NO changes in the patient's condition. Risks, benefits, and alternatives have been discussed and questions answered. Patient agrees to proceed with procedure.
[2024-12-02] MEDS: LACTATED RINGERS 1,000 ML 30 ML IV CONT ×2 (08:00→10:44)
[2024-12-02] MEDS: ACETAMINOPHEN 500 MG TABLET 1000 MG PO (08:15)
[2024-12-02] MEDS: KETOROLAC 15 MG/ML VIAL (*BKC) IV PUSH (08:15)
--- NOTE | 2024-12-02 09:01 | WPDANESEPPF ---
Anes - Initial Pre Proc Eval Procedure: Operation Date: 12/02/24 09:30 Proposed Procedures p Robotic Assisted Total Vaginal Hysterectomy with Bilateral Salpingectomy - Laureano New MD Date/Time: 12/02/24 09:01 Surgeon: Laureano New MD Pre Op Diagnosis: excess .irregul bleeding, failed ablation, anenia Patient Data Age: 44 Gender: F Height: 1.57 m Weight: 75 kg Allergies Allergy/AdvReac Type Severity Reaction Status Date / Time No Known Allergies Allergy Verified 12/02/24 08:21 Home Medications ?Medication ?Instructions ?Recorded ?Confirmed ?Type multivitamin 1 tablet PO DAILY 09/12/20 12/02/24 History hydrocodone 5 mg-acetaminophen 325 1 tablet PO Q4H PRN pain #20 tabs 12/02/24 Rx mg tablet HCG: negative Patient hx anesthesia problems: post op nausea/vomiting Family hx anesthesia problems: none Results Review: All pre-operative results and documents have been reviewed as part of the pre-operative evaluation. [facility] Past Medical History Medical History PONV (postoperative nausea and vomiting) Anemia Mitral valve prolapse Surgical History Surgical History H/O hemorrhoidectomy 10/19/20 Rectal exam under anesthesia, Excision of external hemorrhoid x2 Family History Family History Father Brain tumor Malignant neoplasm of prostate Mother Diabetes mellitus Sibling Diabetes mellitus Unknown Diabetes mellitus Cerebrovascular accident Social History Social History Smoking status: Never smoker Alcohol intake: current Drinks per week: 4 Substance use: never Substance use type: does not use Living arrangements: with family Additional living arrangements comments: [facility] Spiritual care concerns: No Anes - Eval Final PreProcedure Day of Procedure 12/02/24 09:01 Patient weight: obese Heart: regular rate and rhythm Lungs: normal air movement Airway: Mallampati scale class II Neurological: alert and oriented Last oral intake: >/= 8 hours ASA classification: II Emergent: no Anesthetic plan: proceed Anesthesia type and monitoring: general ETT and standard monitoring Results Review: All pre-operative results and documents have been reviewed as part of the pre-operative evaluation. Informed Consent: The patient's anesthetic plan and its attendant risks and benefits were discussed with the patient/family/POA. Questions were solicited and answers provided to the satisfaction of the patient/family/POA.
[2024-12-02] MEDS: ceFAZolin 2 GM in SODIUM CHLORIDE 0.9% IV 50 ML 100 ML IVPB (09:09)
[2024-12-02 09:32] LABS: BEDSIDEPREGUCG Negative (Negative)
--- NOTE | 2024-12-02 10:18 | S_PTH ---
PATIENT: Aysha Bedolla LOC: [facility] U#:[id number] AGE/SX: 44/F ROOM: RE12/02/[address]: Laureano New MD : 1980 BED: DIS: 12/03/2024 SPEC #: [id number] RECD: 12/02/24 11:30 STATUS: SEN REQ #: [id number] NORMA: 12/02/24 10:[address]: Laureano Stewart DEPT: [facility] [place] Surgical RECD BY: Delfino Cotton ENTERED: 12/02/24 11:31 SP TYPE: Surgical OTHR DR: Afsaneh TracyMD Tissues: A - Uterus Procedures: Hematoxylin and Eosin Stain Gross and Microscopic Level 5
--- NOTE | 2024-12-02 10:28 | W.PM.PROC2 ---
Procedure Note - Detailed Date of Procedure 12/02/24 Pre-op Diagnosis excess .irregul bleeding, failed ablation, anenia Post-op Diagnosis Same (Also with endometriosis and adhesions) Procedure Performed Robotic total vaginal hysterectomy right salpingo-oophorectomy and left salpingectomy with extensive lysis of adhesions Surgeon Laureano New MD Anesthesia General Indications 44-year-old female with excessive heavy bleeding pain discomfort Findings Uterus was markedly enlarged. The cul-de-sac was completely obliterated by scar tissue with the colon and right ovary. A right endometrioma was seen. The left ovary appeared within normal limits Description of Procedure Patient was prepped draped in the normal sterile fashion placed in dorsal lithotomy position. Under excellent general trach anesthesia weighted speculum placed in the posterior fornix of the vagina. Anterior lip of the cervix grasped with a single-tooth tenaculum and uterus sounded to 10cm. Serial dilatation with fragmented dilators performed followed by passage of the 10. FAWN and the 3. 0.5 cold cup. Next the 16 Egyptian catheter was placed in bladder drained of clear urine. The weighted speculum was removed as was the single-tooth to the gloves were changed. A supraumbilical incision made the Veress needle passed in the abdomen. Abdomen filled with CO2 gas [id number]. The 8mm trocar advanced in the abdomen. Downside visualized no injury seen. Patient placed in Trendelenburg and left and right lateral quadrant incisions made. 8mm trocars advanced under direct visualization assuring no injury. Right upper quadrant incision made the advanced under direct visualization assuring no injury. The robot was docked. Attention was turned to the certified lactation counselor. There was a marked amount of adhesions in posterior cul-de-sac which was completely obliterated using sharp dissection this was sharply dissected away. The right ovary was encased in entire endometrioma. This was sharply dissected away from the colon small bowel and the posterior surface of the uterus as well as the right ovarian fossa. The infundibulopelvic structure was then skeletonized clamped, burned, cut and brought to the round ligament. The round ligament was grasped, burned, cut. Anteriorly a bladder flap was formed by sharply dissecting the peritoneum away from the uterus and pushing this caudally until the left round ligament was grasped, burned, cut. Next the left fallopian tube was skeletonized and sharply dissected away from the ovarian complex. The left utero-ovarian ligament was skeletonized to lab will maintain the left ovary this was clamped, burned, cut brought to the level of previously cut round ligament. The cardinal broad ligaments on the left were then skeletonized clamping burning cutting and large tortuous blood vessels were noted on left these were individually clamped, burned, cut. In similar fashion the cardinal broad ligaments on the right were serially skeletonized clamping burning cutting and bringing this down the lateral edge until the uterine vessels could be seen on the right. These were individually clamped, burned, cut. Blanching of the uterus was noticed. A colpotomy incision made the cervix uterus ovary right and right fallopian tube and left fallopian tube through the vagina. Hemostasis was assured the uterus was removed from the pelvis. The vagina then closed with continuous running 0V lock from lateral edge to lateral edge back to the midline. Irrigation undertaken to clear and the raw surface area sprinkled with Opheim term hemostasis was assured. The robot was undocked. The gas removed from the abdomen. The trocars removed the incisions closed with 4 Monocryl glue. Patient went to recovery in satisfactory condition. All sponge, needle, instrument counts were correct. There were no immediate complications. Estimated Blood Loss 100 Drains No Packing No Pathology Yes Complications No immediate complications Condition Stable Disposition PACU
--- NOTE | 2024-12-02 10:32 | P.DS_ITS ---
DS: Admitting Diagnosis Discharge Date 12/03/2024 Admitting Diagnosis Pelvic pain/excessive bleeding. DS: Discharge Diagnosis Discharge Diagnosis (1) Excessive bleeding: Code(s): R58 - Hemorrhage, not elsewhere classified Status: Acute (2) Anemia: Code(s): D64.9 - Anemia, unspecified Status: Acute (3) Endometriosis: Code(s): N80.9 - Endometriosis, unspecified Status: Acute (4) Pelvic adhesions: Code(s): N73.6 - Female pelvic peritoneal adhesions (postinfective) Status: Acute DS: Summary Hospital Course Reason for hospitalization: Patient was admitted for robotic total vaginal hysterectomy and bilateral salpingectomy which was converted tube bilateral salpingectomy and right oophorectomy secondary to an endometrioma and adhesions. Hospital Course: Patient's hospital course unremarkable. She remained afebrile. She was up, voiding without difficulty, eating regular diet, ambulating, and generally without complaints. Time Spent with Patient Time attestation: Total time spent providing and/or coordinating discharge services: Exam Const: General: cooperative, healthy appearing, comfortable and overweight Orientation/consciousness: oriented to person, oriented to place and oriented to time HENMT: Head: normal to inspection Resp: Effort & Inspection: normal respiratory effort Cardio: Rate: regular rate Rhythm: regular rhythm Heart sounds: S1 normal heart sound present and S2 normal heart sound present GI: Inspection: normal to inspection : External Female Exam: normal external appearance Speculum Exam - Vagina: normal appearance of the vagina Speculum Exam - Cervix: normal appearance of the cervix Bimanual exam- vagina & uterus: enlarged Bimanual Exam- Adnexa, other: normal adnexae DS: Data Data Completed and Pending Pending studies at discharge: Pending at discharge 12/02/24 10:18 Surgical [PTH] Routine Labs on day of discharge: Labs from last 24 hours 12/02/24 07:45 POC Urine HCG, Qual Negative Discharge Plan Discharge Patient Disposition: Home Patient Language: Italian Stand Alone Forms: General Discharge Instructions Follow-up/Referrals: Laureano Stewart MD [Physician, MAKEUP SALES ADVISOR] Discharge Medications: New hydrocodone-acetaminophen 5-325 mg tablet 1 tablet PO Q4H PRN (Reason: pain) Qty: 20 0RF No Action multivitamin Tablet 1 tablet PO DAILY
--- NOTE | 2024-12-02 12:13 | PC.NURSE ---
This patient, Aysha Bedolla, was received from PACU on 12/02/24 at 1213. Patient/family oriented to unit policies and routines.
[2024-12-02] MEDS: DEXTROSE 5%/0.45% SOD CHL 1,000 ML 125 ML IV CONT (12:53)
[2024-12-02] MEDS: KETOROLAC 30 MG/ML VIAL (*BKC) IV PUSH ×2 (14:13→20:08)
[2024-12-02] MEDS: ACETAMINOPHEN 325 MG TABLET 650 MG PO ×2 (14:14→20:08)
[2024-12-02] MEDS: DOCUSATE SODIUM 100 MG CAPSULE PO (16:13)
[2024-12-02] MEDS: SIMETHICONE 80 MG TAB.CHEW PO (16:13)
[2024-12-02] MEDS: ONDANSETRON INJ 4 MG/2 ML VIAL IV PUSH (17:38)
[2024-12-03 00:01] VITALS: BP 115/74; PULSE 83; RESP 17; TEMP 36.7; O2SAT 98
[2024-12-03] MEDS: HYDROcodone/acetaminophen (*CRX) 5-325 MG TABLET 1 TAB PO (00:11)
[2024-12-03] MEDS: ACETAMINOPHEN 325 MG TABLET 650 MG PO ×2 (03:45→09:38)
[2024-12-03] MEDS: KETOROLAC 30 MG/ML VIAL (*BKC) IV PUSH (03:45)
[2024-12-03 03:53] VITALS: BP 124/81; PULSE 73; RESP 18; TEMP 36.6; O2SAT 98
[2024-12-03 04:26] LABS: Hematocrit 31.3 % (37.0-47.0); Hemoglobin 10.3 g/dL (12.0-15.0); Immature Granulocyte Percent A 0.5 % (0-0.5); Lymphocytes Absolute Auto 1.30 K/mm3 (0.9-3.2); Mean Corpuscular HGB Conc 32.9 g/dl (32-36); Mean Corpuscular Hemoglobin 31.0 pg (26-34); Mean Corpuscular Volume 94.3 fl (80-100); Nucleated Red Blood Cells Absolute Auto 0.000 K/mm3 (0.0-0.012); Nucleated Red Blood Cells Perc 0.0 % (0.0-0.2); Platelet Count Result 235 k/mm3 (150-375); Red Blood Count 3.32 M/mm3 (4.2-5.4); White Blood Count 11.0 K/mm3 (4.5-10.0)
--- NOTE | 2024-12-03 06:17 | P.PNOB_ITS ---
IT APPLICATION ADMINISTRATOR - A/P Assessment and plan (1) Excessive bleeding: Code(s): R58 - Hemorrhage, not elsewhere classified Status: Acute (2) Endometriosis: Code(s): N80.9 - Endometriosis, unspecified Status: Acute (3) Pelvic adhesions: Code(s): N73.6 - Female pelvic peritoneal adhesions (postinfective) Status: Acute Plan home Postoperative Procedures: Procedures Operation Date: 12/02/24 09:30 Actual Procedure Side Surgeon p Robotic Assisted Total Vaginal Hysterectomy with Bilateral Salpingectomy, Right Oophorectomy Bilateral Laureano New MD Time Spent With Patient Time: Total time spent is greater than 50% in coordination of care (as documented) at patient's floor/unit and/or counseling patient: Time with patient: 15 - 25 minutes IT APPLICATION ADMINISTRATOR- PN:Cliff Post-Op Subjective Date/time seen: 12/03/24 06:17 Subjective: patient reports feeling better, patient has no complaints, patient desires discharge, pain is well controlled and patient is tolerating oral intake Review of Systems 2 Review of Systems: All systems reviewed & are unremarkable except as noted in HPI and below Constitutional: Constitutional: Denies chills, Denies fever(s), Denies headache(s) and Denies weight loss Eyes: Eyes: Denies change in vision ENT: Denies dizziness, Denies headache(s), Denies neck mass and Denies throat swelling Cardiovascular: Cardiovascular: Denies chest pain, Denies lightheadedness and Denies dyspnea Respiratory: Respiratory: Denies cough, Denies dyspnea and Denies wheezing Gastrointestinal: Gastrointestinal: Denies abdominal pain, Denies change in bowel habits, Denies nausea and Denies vomiting Genitourinary: Genitourinary: Denies hematuria and Denies dysuria Musculoskeletal: Musculoskeletal: Reports as per HPI Integumentary/Breasts: Skin/Breast: Reports as per HPI Neurologic: Denies dizziness and Denies headache(s) Allergic/Immunologic: Allergic/Immunologic: Denies throat swelling and Denies wheezing Exam 2 Const: General: cooperative, healthy appearing, comfortable and overweight Orientation/consciousness: oriented to person, oriented to place and oriented to time HENMT: Head: normal to inspection Resp: Effort & Inspection: normal respiratory effort Cardio: Rate: regular rate Rhythm: regular rhythm Heart sounds: S1 normal heart sound present and S2 normal heart sound present GI: Inspection: normal to inspection : External Female Exam: normal external appearance Speculum Exam - Vagina: normal appearance of the vagina Speculum Exam - Cervix: normal appearance of the cervix Bimanual exam- vagina & uterus: enlarged Bimanual Exam- Adnexa, other: normal adnexae IT APPLICATION ADMINISTRATOR - PN: Obj Data Vital Signs Vital Signs: Vital Signs - 24 hr 12/02/24 08:40 12/02/24 10:44 12/02/24 10:55 Temperature 99.3 F 97.6 F Pulse Rate 72 61 75 Respiratory Rate 16 10 L 14 Blood Pressure 119/79 97/56 L 121/76 Pulse Oximetry 99 100 100 Oxygen Delivery Room Air Simple Face Mask Simple Face Mask Oxygen Flow Rate 10 10 12/02/24 11:10 12/02/24 11:25 12/02/24 11:40 Temperature Pulse Rate 79 76 83 Respiratory Rate 12 14 11 L Blood Pressure 119/71 119/71 123/77 Pulse Oximetry 100 98 98 Oxygen Delivery Simple Face Mask Simple Face Mask Room Air Oxygen Flow Rate 10 14 12/02/24 11:55 12/02/24 12:20 12/02/24 16:12 Temperature 98.9 F 97.9 F Pulse Rate 79 72 72 Respiratory Rate 13 16 16 Blood Pressure 109/78 113/70 133/81 Pulse Oximetry 100 96 99 Oxygen Delivery Room Air Oxygen Flow Rate 12/02/24 19:28 12/02/24 20:09 12/03/24 00:01 Temperature 97.5 F L 98.0 F Pulse Rate 78 83 Respiratory Rate 18 17 Blood Pressure 124/79 115/74 Pulse Oximetry 100 98 Oxygen Delivery Room Air Oxygen Flow Rate 12/03/24 00:11 12/03/24 03:43 12/03/24 03:53 Temperature 97.9 F Pulse Rate 73 Respiratory Rate 18 Blood Pressure 124/81 Pulse Oximetry 98 Oxygen Delivery Room Air Room Air Oxygen Flow Rate Intake/Output Intake/Output: Intake & Output 11/30/24 12/01/24 12/02/24 12/03/24 23:59 23:59 23:59 23:59 Intake Total 650 Output Total 810 1450 Balance -160 -1450 Meds/Results Medications: Active Medications Generic Name Dose Route Start Last Admin Trade Name Freq PRN Reason Stop Dose Admin Acetaminophen 650 mg 12/02/24 18:00 12/03/24 03:45 Acetaminophen 325 Mg Tablet PO 650 mg Q6HR SAHIL Administration Hydrocodone Bitart/Acetaminophen 1 tab 12/02/24 13:10 12/03/24 00:11 Hydrocodone/Acetaminophen (*Crx) 5-325 Mg Tablet PO 1 tab Q4H PRN Administration Pain Rated 4-6 Hydrocodone Bitart/Acetaminophen 1 tab 12/02/24 13:10 Hydrocodone/Acetaminophen (*Crx) 10-325 Mg Tablet PO Q6H PRN Pain Rated 7-10 Docusate Sodium 100 mg 12/02/24 17:00 12/02/24 16:13 Docusate Sodium 100 Mg Capsule PO 100 mg BID [facility] Administration Enoxaparin Sodium 40 mg 12/03/24 09:00 Enoxaparin 40 Mg/0.4 Ml Syringe SUB-Q DAILY [facility] Dextrose/Sodium Chloride 1,000 mls @ 125 mls/hr 12/02/24 12:10 12/03/24 00:12 Dextrose 5% Sodium Chloride 0.45% IV CONT Not Given .Q8H [facility] Ibuprofen 600 mg 12/03/24 12:00 Ibuprofen 600 Mg Tablet PO Q6HR [facility] Naloxone HCl 0.1 mg 12/02/24 12:10 Naloxone Hcl 0.4 Mg/Ml Vial IV PUSH Q2M PRN Respiratory rate less than 10 Ondansetron HCl 4 mg 12/02/24 12:10 12/02/24 17:38 Ondansetron Inj 4 Mg/2 Ml Vial IV PUSH 4 mg Q6H PRN Administration Nausea And Vomiting Simethicone 80 mg 12/02/24 17:00 12/02/24 16:13 Simethicone 80 Mg Tab.Chew PO 80 mg TIDWM SAHIL Administration Labs 12/03/24 04:11 Labs: Laboratory Results - last 24 hr 12/02/24 12/03/24 07:45 04:11 WBC 11.0 H RBC 3.32 L Hgb 10.3 L Hct 31.3 L MCV 94.3 MCH 31.0 MCHC 32.9 RDW 13.9 Plt Count 235 MPV 9.5 Immature Gran % (Auto) 0.5 Neut % (Auto) 78.4 H Lymph % (Auto) 11.8 L Mclean % (Auto) 9.0 H Eos % (Auto) 0.1 Baso % (Auto) 0.2 Lymph # (Auto) 1.30 Mclean # (Auto) 1.0 H Eos # (Auto) 0.0 Baso # (Auto) 0.0 Abs Immat Gran (auto) 0.06 H Absolute Neuts (auto) 8.6 H Absolute Nucleated RBC 0.000 Nucleated RBC % 0.0 POC Urine HCG, Qual Negative
[2024-12-03 08:20] VITALS: BP 120/70; PULSE 70; RESP 16; TEMP 36.4; O2SAT 100
[2024-12-03] MEDS: SIMETHICONE 80 MG TAB.CHEW PO (09:38)
[2024-12-03] MEDS: DOCUSATE SODIUM 100 MG CAPSULE PO (09:38)
[2024-12-03] MEDS: IBUPROFEN 600 MG TABLET PO (09:39)
[2024-12-03] MEDS: ENOXAPARIN 40 MG/0.4 ML SYRINGE SUB-Q (09:40)
== END 2024-12-03 10:25 | disposition home or self-care (01) ==
LOC: ANHSURGERY 07:29 → ANHOB2 12:21
PROVIDERS: PCP Family Medicine; Visit Provider Obstetrics & Gynecology
PROC: (CPT 58552; principal; 2024-12-02 09:30)
DX: N83.11 Corpus luteum cyst of right ovary (principal); N73.6 Female pelvic peritoneal adhesions (postinfective); D64.9 Anemia, unspecified; E66.9 Obesity, unspecified; Z68.30 Body mass index [BMI] 30.0-30.9, adult; Z98.890 Other specified postprocedural states; Z86.79 Personal history of other diseases of the circulatory system; Z80.42 Family history of malignant neoplasm of prostate
CPT/HCPCS: 58552; S2900; 36415; 85025; 88307; 99199; J0690; A9270; J1100; J1171; J1650; J1885; J2003; J2250; J2405; J2704; J3010; J7030; J7120